=== PATIENT | female | born 1930 ===

== ENCOUNTER 2017-10-06 15:48 | Observation (INO) | payer MEDICARE, MEDICAID ==
--- NOTE | 2017-10-06 16:31 | ED PDOC ---
HPI: Headache Time Seen by Provider: 10/06/17 16:01 Chief Complaint (Nursing): Headache Chief Complaint (Provider): Headache and Neck Pain History Per: Patient History/Exam Limitations: no limitations Onset/Duration Of Symptoms: Days (x1) Current Symptoms Are (Timing): Still Present Quality: "Pain" Additional Complaint(s): 87 year old female with a history of chronic neck pain and hypertension presents to the ED worse neck pain that suddenly started at 11pm last night as she was watching TV and associated with headache. Patient reports she gets injections for the neck pain, her last injection was a month and a half ago and her next dose will be on Saturday. She took Tylenol with minimal relief. Patient has normal gait but denies focal weakness, blurry vision, difficulty speaking, numbness except for chronic numbness in her extremities from her neck pain, fever, neck stiffness, or any other medical complaints. PMD: Dr. Horne Past Medical History Reviewed: Historical Data Vital Signs: Last Vital Signs Temp 97.5 F L 10/06/17 15:54 Pulse 92 H 10/06/17 15:54 Resp 16 10/06/17 15:54 BP 156/72 H 10/06/17 15:54 Pulse Ox 100 10/06/17 15:54 - Medical History PMH: HTN Other PMH: Chronic Neck Pain - Surgical History Other surgeries: lumbar spine surgery - Family History Family History: States: No Known Family Hx - Social History Current smoker - smoking cessation education provided: No Ex-Smoker (has not smoked in the last 12 months): No - Home Medications Home Medications: Ambulatory Orders Medication Instructions Recorded Cyclobenzaprine [Flexeril] 5 mg PO Q8 PRN #15 tab 10/06/17 Lidocaine 5% [Lidoderm] 1 ea TD DAILY PRN #20 patch 10/06/17 Valsartan [Diovan] 160 mg PO DAILY 10/06/17 Acetaminophen [Tylenol 325mg tab] 650 mg PO Q6 PRN tab 10/07/17 oxyCODONE/Acetaminophen [Percocet 1 ea PO Q6 #10 tab 10/07/17 5/325 mg Tab] - Allergies Allergies/Adverse Reactions: Allergies Allergy/AdvReac Type Severity Reaction Status Date / Time Penicillins Allergy RASH Verified 10/06/17 15:54 Review of Systems ROS Statement: Except As Marked, All Systems Reviewed And Found Negative Musculoskeletal: Positive for: Neck Pain Neurological: Positive for: Headache Physical Exam - Reviewed Nursing Documentation Reviewed: Yes Vital Signs Reviewed: Yes - Physical Exam Appears: Positive for: Well, In Acute Distress (mild painful) Head Exam: Positive for: ATRAUMATIC, NORMOCEPHALIC Skin: Positive for: Normal Color, Warm, Dry Eye Exam: Positive for: EOMI, Normal appearance, PERRL ENT: Negative for: Pharyngeal Erythema, Tonsillar Exudate Neck: Positive for: Supple. Negative for: Normal (Mild right paraspinal cervical tenderness, no midline tenderness) Cardiovascular/Chest: Positive for: Regular Rate, Rhythm. Negative for: Murmur Respiratory: Positive for: Normal Breath Sounds. Negative for: Respiratory Distress Gastrointestinal/Abdominal: Positive for: Soft. Negative for: Tenderness Back: Positive for: Normal Inspection. Negative for: Decreased ROM Extremity: Positive for: Normal ROM. 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 Negative for: Motor/Sensory Deficits, Facial Droop - Laboratory Results Result Diagrams: 10/07/17 05:00 10/07/17 05:00 - ECG ECG: Positive for: Interpreted By Pa ECG Rhythm: Positive for: Normal QRS, Normal ST Segment, Sinus Rhythm O2 Sat by Pulse Oximetry: 100 (RA) Pulse Ox Interpretation: Normal Medical Decision Making Medical Decision Making: Time: 16:16 Initial Impression: headache and neck pain Differential diagnoses include but are not limited to neck strain, herniated disc, intracranial hemorrhage, vertebral aneurysm. Initial Plan: --Type and screen --Cervical spine CT --Head CT --EKG --CMP --Troponin --Urine dip --CBC with differentials --Partial thromboplastin time --Prothrombin Time --Morphine 2 mg IVP Time: 19:[address]: FINDINGS: Brain: Prominent sulci. Patchy hypodensity of the cerebral white matter which are nonspecific but likely secondary to microangiopathic changes. No hemorrhage. Ventricles: The ventricles are prominent secondary to diffuse volume loss/ atrophy. Bones/joints: Unremarkable. No acute fracture. Soft tissues: Unremarkable. Sinuses: Unremarkable as visualized. No acute sinusitis. Mastoid air cells: Unremarkable as visualized. No mastoid effusion. IMPRESSION: Chronic age related changes but no evidence of acute intracranial pathology. Time: 19:[address]: FINDINGS: Vertebrae: Hypertrophic changes are present involving the dens and anterior arch of C1. No acute fracture. Discs/spinal canal/neural foramina: Mild right neuroforaminal narrowing C3-4. Soft tissues: Unremarkable. Lung apices: Scarring in the lung apices. IMPRESSION: No evidence of cervical spine fracture. Remainder of findings as described above. Time: 20:09 --Patient reports she feels better and is eager to go home. She is concerned about the neck pain she continues to have. Offered hospitalization for further pain management but patient declined due to responsibilities at home. Patient will be discharged with Flexeril for muscle spasms. She will follow up with her neurologist on Saturday. Time: 20:28 --Angio CT Time: :30 --Patient started to have nausea and decided she will stay for further evaluation and management. ---- Scribe Attestation: Documented by Gill Stoll, acting as a scribe for Mariela Silva MD Provider Scribe Attestation: All medical record entries made by the Scribe were at my direction and personally dictated by me. I have reviewed the chart and agree that the record accurately reflects my personal performance of the history, physical exam, medical decision making, and the department course for this patient. I have also personally directed, reviewed, and agree with the discharge instructions and disposition. Disposition - Clinical Impression Clinical Impression: Neck pain - Disposition Disposition Time: 22:30 Condition: FAIR - Pt Status Changed To: Hospital Disposition Of: Observation - POA Present On Arrival: None
[2017-10-06 16:34] LABS: BASO # 0.1 K/uL (0.0-0.2); EOS # 0.1 K/uL (0.0-0.7); EOS % 0.8 % (0.0-4.0); HEMOGLOBIN 12.6 g/dL (12.0-16.0); LYMPH # 1.9 K/uL (1.0-4.3); LYMPH % 28.3 % (20.0-40.0); MEAN CELL VOLUME 93.8 fl (81.0-99.0); MEAN CORPUSCULAR HGB CONC 33.1 g/dL (33.0-37.0); MEAN PLATELET VOLUME 8.2 fl (7.2-11.7); MONO # 0.7 K/uL (0.0-0.8); NEUT # 4.1 K/uL (1.8-7.0); NEUT % 59.9 % (50.0-75.0); RBC 4.07 Mil/uL (3.80-5.20); WHITE BLOOD COUNT 6.9 K/uL (4.8-10.8)
[2017-10-06 16:41] LABS: INR 1.1 (0.9-1.2); PARTIAL THROMBOPLASTIN TIME 24.8 Seconds (25.6-37.1); PROTHROMBIN TIME 11.7 Seconds (9.8-13.1)
[2017-10-06 16:42] LABS: ALB/GLOB RATIO 1.5 (1.0-2.1); ALBUMIN 4.5 g/dL (3.5-5.0); CALCIUM 9.7 mg/dL (8.4-10.2); GFR AFRICAN-AMERICAN > 60; GFR NON-AFRICAN AMERICAN 60
[2017-10-06 16:47] LABS: ALT/SGPT 25 U/L (9-52); AST/SGOT 34 U/L (14-36); BLOOD UREA NITROGEN 12 mg/dl (7-17)
--- NOTE | 2017-10-06 19:37 | CT ---
EXAM: CT Head Without Intravenous Contrast EXAM DATE/TIME: 10/06/2017 4:17 PM CLINICAL HISTORY: 87 years old, female; Pain; Headache; Other: Chronic العراقي's neck pain rt >lt; Patient HX: Rt shoulder and l/spine SX; Additional info: Headache neck pain TECHNIQUE: Axial computed tomography images of the head/brain without intravenous contrast. All CT scans at this facility use at least one of these dose optimization techniques: automated exposure control; mA and/or kV adjustment per patient size (includes targeted exams where dose is matched to clinical indication); or iterative reconstruction. Coronal and sagittal reformatted images were created and reviewed. COMPARISON: No relevant prior studies available. FINDINGS: Brain: Prominent sulci. Patchy hypodensity of the cerebral white matter which are nonspecific but likely secondary to microangiopathic changes. No hemorrhage. Ventricles: The ventricles are prominent secondary to diffuse volume loss/atrophy. Bones/joints: Unremarkable. No acute fracture. Soft tissues: Unremarkable. Sinuses: Unremarkable as visualized. No acute sinusitis. Mastoid air cells: Unremarkable as visualized. No mastoid effusion. IMPRESSION: Chronic age related changes but no evidence of acute intracranial pathology.
--- NOTE | 2017-10-06 19:44 | CT ---
EXAM: CT Cervical Spine Without Intravenous Contrast EXAM DATE/TIME: 10/06/2017 4:16 PM CLINICAL HISTORY: 87 years old, female; Pain; Other: Chronic العراقي's neck pain rt >lt; Patient HX: Rt shoulder and l/spine SX; Additional info: Severe head and neck pain TECHNIQUE: Axial computed tomography images of the cervical spine without intravenous contrast. All CT scans at this facility use at least one of these dose optimization techniques: automated exposure control; mA and/or kV adjustment per patient size (includes targeted exams where dose is matched to clinical indication); or iterative reconstruction. Coronal and sagittal reformatted images were created and reviewed. COMPARISON: No relevant prior studies available. FINDINGS: Vertebrae: Hypertrophic changes are present involving the dens and anterior arch of C1. No acute fracture. Discs/spinal canal/neural foramina: Mild right neuroforaminal narrowing C3-4. Soft tissues: Unremarkable. Lung apices: Scarring in the lung apices. IMPRESSION: No evidence of cervical spine fracture. Remainder of findings as described above.
[2017-10-06] MEDS ORDERED: Sodium Chloride 0.9% 1,000 ML IV STA (20:26)
[2017-10-06] MEDS ORDERED: Oxycodone/Acetaminophen 5/325 mg Tab PO PRN (21:14)
[2017-10-06] MEDS ORDERED: Sodium Chloride 0.9% 50 ML IV ONE (21:19)
[2017-10-06] MEDS ORDERED: Iodixanol 320 MG/ML 100 ML BOTTLE IV ONE (21:19)
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
[2017-10-07 00:36] VITALS: RESP 20
[2017-10-07 06:28] LABS: HEMOGLOBIN 12.2 g/dL (12.0-16.0); MEAN CELL VOLUME 93.8 fl (81.0-99.0); MEAN CORPUSCULAR HGB CONC 34.2 g/dL (33.0-37.0); RBC 3.82 Mil/uL (3.80-5.20); RED CELL DISTRIBUTION WIDTH 12.8 % (11.5-14.5); WHITE BLOOD COUNT 9.5 K/uL (4.8-10.8)
[2017-10-07 06:34] LABS: SQUAMOUS EPITHIAL 2 /hpf (0-5); URINE BILIRUBIN NEGATIVE (NEGATIVE); URINE BLOOD NEGATIVE (NEGATIVE); URINE CLARITY CLEAR (Clear); URINE COLOR YELLOW (YELLOW); URINE GLUCOSE (UA) NEG (Normal); URINE LEUKOCYTE ESTERASE NEG Leu/uL (Negative); URINE PROTEIN NEGATIVE (NEGATIVE); URINE UROBILINOGEN 0.2-1.0 mg/dL (0.2-1.0)
[2017-10-07 06:47] LABS: BLOOD UREA NITROGEN 12 mg/dl (7-17); CALCIUM 9.1 mg/dL (8.4-10.2); GFR AFRICAN-AMERICAN > 60; GFR NON-AFRICAN AMERICAN > 60
[2017-10-07 08:30] VITALS: BP 153/75; PULSE 77
[2017-10-07 08:31] VITALS: TEMP 98.7
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
--- NOTE | 2017-10-07 12:47 | CT ---
Date of service: 10/06/2017 PROCEDURE: CT Angiography of the Brain and Neck. HISTORY: severe neck pain r/o dissection COMPARISON: None available. TECHNIQUE: CT angiography of the intracranial and neck arteries was performed. Coronal and sagittal maximum intensity projection reformatted images were generated. Contrast Dose: Visipaque 320, 95 cc Radiation dose:Total exam DLP = 1900.02 mGy-cm. This CT exam was performed using one or more of the following dose reduction techniques: Automated exposure control, adjustment of the mA and/or kV according to patient size, and/or use of iterative reconstruction technique. FINDINGS: INTERNAL CEREBRAL ARTERIES: Mild cavernous ICA atherosclerosis identified bilaterally. . The skull base, petrous, cavernous and supraclinoid segments are bilaterally widely patent. ANTERIOR CEREBRAL ARTERIES: Unremarkable. A1 and A2 segments are widely patent. Smaller distal branches unremarkable, as visualized. MIDDLE CEREBRAL ARTERIES: Unremarkable. M1 and M2 segments are widely patent. Perisylvian branches grossly symmetric. POSTERIOR CIRCULATION: Basilar Artery: Unremarkable. Distal Vertebral Arteries: Patent with left dominant vertebrobasilar circulation evident. Posterior Cerebral Arteries: Unremarkable. Posterior Inferior Cerebellar Arteries: Unremarkable. NECK CTA: Common Carotid arteries: The bilateral common carotid appear widely patent from their origins to their bifurcations with no significant stenosis appreciated. No evidence to suggest common carotid artery dissection. Moderate right and mild left carotid bulbar atherosclerotic Internal Carotid arteries: No significant stenosis is appreciated throughout the cervical internal carotid artery segments bilaterally and there is no evidence of dissection either. External Carotid arteries: Appea plaque identified. R unremarkable bilaterally. Vertebral arteries: The bilateral vertebral arteries appear normal in caliber from their origins to their junction with the basilar artery. No significant stenosis or definite pattern of dissection. ANEURYSM/ VASCULAR MALFORMATIONS: None. OTHER FINDINGS: None. IMPRESSION: CT angiography of the brain and neck fails demonstrate evidence of occlusion or significant stenosis although bilateral cavernous ICA and bilateral carotid bulbar atherosclerotic changes are identified. No Arteriovascular malformation or aneurysm identified. Concordant preliminary report from [facility], 10/06/2017.
[2017-10-07 14:03] VITALS: O2SAT 100
--- NOTE | 2017-10-07 15:44 | CP.PCM.DIS ---
Provider - Provider Date of Admission: 10/06/17 20:30 Attending physician: Crystal Cowart MD Primary care physician: PMD: Dr. Horne Consults: Dr. Heck, anesthesia Time Spent in preparation of Discharge (in minutes): 15 Hospital Course - Lab Results Lab Results: Most Recent Lab Values WBC 9.5 K/uL (4.8-10.8) 10/07/17 05:00 RBC 3.82 Mil/uL (3.80-5.20) 10/07/17 05:00 Hgb 12.2 g/dL (12.0-16.0) 10/07/17 05:00 Hct 35.8 % (34.0-47.0) 10/07/17 05:00 MCV 93.8 fl (81.0-99.0) 10/07/17 05:00 MCH 32.0 pg (27.0-31.0) H 10/07/17 05:00 MCHC 34.2 g/dL (33.0-37.0) 10/07/17 05:00 RDW 12.8 % (11.5-14.5) 10/07/17 05:00 Plt Count 194 K/uL (130-400) 10/07/17 05:00 MPV 8.2 fl (7.2-11.7) 10/06/17 16:31 Neut % (Auto) 59.9 % (50.0-75.0) 10/06/17 16:31 Lymph % (Auto) 28.3 % (20.0-40.0) 10/06/17 16:31 [place] % (Auto) 10.0 % (0.0-10.0) 10/06/17 16:31 Eos % (Auto) 0.8 % (0.0-4.0) 10/06/17 16:31 Baso % (Auto) 1.0 % (0.0-2.0) 10/06/17 16:31 Neut # (Auto) 4.1 K/uL (1.8-7.0) 10/06/17 16:31 Lymph # (Auto) 1.9 K/uL (1.0-4.3) 10/06/17 16:31 [place] # (Auto) 0.7 K/uL (0.0-0.8) 10/06/17 16:31 Eos # (Auto) 0.1 K/uL (0.0-0.7) 10/06/17 16:31 Baso # (Auto) 0.1 K/uL (0.0-0.2) 10/06/17 16:31 PT 11.7 Seconds (9.8-13.1) 10/06/17 16:31 INR 1.1 (0.9-1.2) 10/06/17 16:31 APTT 24.8 Seconds (25.6-37.1) L 10/06/17 16:31 Sodium 135 mmol/l (132-148) 10/07/17 05:00 Potassium 4.1 MMOL/L (3.6-5.0) 10/07/17 05:00 Chloride 100 mmol/L (98-107) 10/07/17 05:00 Carbon Dioxide 23 mmol/L (22-30) 10/07/17 05:00 Anion Gap 16 (10-20) 10/07/17 05:00 BUN 12 mg/dl (7-17) 10/07/17 05:00 Creatinine 0.8 mg/dl (0.7-1.2) 10/07/17 05:00 Est GFR ( Amer) > 60 10/07/17 05:00 Est GFR (Non-Af Amer) > 60 10/07/17 05:00 Random Glucose 104 mg/dL (65-105) 10/07/17 05:00 Calcium 9.1 mg/dL (8.4-10.2) 10/07/17 05:00 Total Bilirubin 1.3 mg/dl (0.2-1.3) 10/06/17 16:31 AST 34 U/L (14-36) 10/06/17 16:31 ALT 25 U/L (9-52) 10/06/17 16:31 Alkaline Phosphatase 63 U/L (38-126) 10/06/17 16:31 Troponin I < 0.0120 ng/mL (0.00-0.120) 10/06/17 16:31 Total Protein 7.5 G/DL (6.3-8.2) 10/06/17 16:31 Albumin 4.5 g/dL (3.5-5.0) 10/06/17 16:31 Globulin 3.1 gm/dL (2.2-3.9) 10/06/17 16:31 Albumin/Globulin Ratio 1.5 (1.0-2.1) 10/06/17 16:31 Urine Color Yellow (YELLOW) 10/07/17 06:00 Urine Clarity Clear (Clear) 10/07/17 06:00 Urine pH 6.0 (5.0-8.0) 10/07/17 06:00 Ur Specific [place] > 1.060 (1.003-1.030) H 10/07/17 06:00 Urine Protein Negative mg/dL (NEGATIVE) 10/07/17 06:00 Urine Glucose (UA) Neg mg/dL (Normal) 10/07/17 06:00 Urine Ketones Negative mg/dL (NEGATIVE) 10/07/17 06:00 Urine Blood Negative (NEGATIVE) 10/07/17 06:00 Urine Nitrate Negative (NEGATIVE) 10/07/17 06:00 Urine Bilirubin Negative (NEGATIVE) 10/07/17 06:00 Urine Urobilinogen 0.2-1.0 mg/dL (0.2-1.0) 10/07/17 06:00 Ur Leukocyte Esterase Neg [place]/uL (Negative) 10/07/17 06:00 Urine RBC (Auto) 2 /hpf (0-3) 10/07/17 06:00 Urine Microscopic WBC 3 /hpf (0-5) 10/07/17 06:00 Ur Squamous Epith Cells 2 /hpf (0-5) 10/07/17 06:00 Blood Type A POSITIVE 10/06/17 17:02 Antibody Screen Negative 10/06/17 17:02 BBK History Checked No verified bt 10/06/17 17:02 - Hospital Course Hospital Course: 87 y/o female with chronic nerve related neck pain presents with acutely worsening neck pain and FLEMING since 10/05. FLEMING is mostly on right side. No nuchal rigidity, no fevers. No n/v. Patient has been getting some time of injection for the nerve pain originating form neck, and the next one is due this upcoming Saturday. Patient also notes some type of 'diagnostic injection' 1 1/2 months ago. She denied any visual changes or focal weakness. The patient was then placed on observation and Dr. Heck, anesthesia/pain management, was called on consultation. The patient has a CT angio to r/o dissection which was negative. This morning, the patient's headache was resolved. She has refused any injection for pain this morning with Dr. Heck as she has an appointment this week with her own pain specialist, Dr. Montenegro. Therefore she is being discharge to home with Percocet as per Dr. Heck. 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 - CTA negative for dissection - Patient sent home with script for Percocet - Follow up with appointment with Dr. Montenegro this week. (2) HTN (hypertension) Status: Acute - continue home meds (3) DVT prophylaxis Status: Acute Discharge Exam - Head Exam Head Exam: ATRAUMATIC, NORMOCEPHALIC Discharge Plan - Discharge Medications Prescriptions: Cyclobenzaprine [Flexeril] 5 mg PO Q8 PRN #15 tab PRN Reason: muscle spasm Lidocaine 5% [Lidoderm] 1 ea TD DAILY PRN #20 patch PRN Reason: PAIN oxyCODONE/Acetaminophen [Percocet 5/325 mg Tab] 1 ea PO Q6 #10 tab - Follow Up Plan Condition: FAIR Disposition: HOME/ ROUTINE Instructions: Neck Pain, Headache, Adult (DC), Hypertension (DC), Hypertension (GEN) Additional Instructions: FOLLOW UP WITH YOUR NEUROLOGIST THIS WEEK ON SATURDAY. SETUP EARLIER APPOINTMENT IF POSSIBLE RETURN TO ER FOR: -SEVERE PAIN -WEAKNESS OR NUMBNESS -LOSS OF VISION -FAINTING OR NEAR FAINTING Referrals: Melo Horne MD [Family Provider] - Marquez Heck-Kvng Choi MD [Staff Provider] -
--- NOTE | 2017-10-08 11:17 | CARD ---
APPROVED REPORT Date of service: 10/06/2017 EKG Measurement Heart [id number] <Conclusion> Normal sinus rhythm Normal ECG
== END 2017-10-07 13:37 | disposition home or self-care (01) ==
LOC: H.ER 15:48 → H.ERHOLD 20:30 → H.MEDSURG1 22:39
PROVIDERS: ADMIT Internal Medicine; ATTEND Internal Medicine
DX: M47.812 Spondylosis without myelopathy or radiculopathy, cervical region (principal); M48.02 Spinal stenosis, cervical region; Z79.899 Other long term (current) drug therapy; M54.2 Cervicalgia; M54.9 Dorsalgia, unspecified; M62.838 Other muscle spasm; R51 Headache; G89.29 Other chronic pain; I10 Essential (primary) hypertension
CPT/HCPCS: 36415; 70450; 70496; 70498; 72125; 80048; 80053; 81003; 84484; 85025; 85027; 85610; 85730; 86850; 86900; 96374; 96375; 96376; 99285; G0378; J2270; J2405; J7030; Q9967